=== PATIENT | female | born 1970 | race African-American/Black ===

== ENCOUNTER 2021-03-08 12:31 | Inpatient (IN) | payer BC ==
[~2021-03-08] VITALS: Ht 154.9 cm; Wt 104.3 kg
[~2021-03-08 12:31] MED LIST: BUPR300T52 PO; ENOX40DI SQ; ESCI10TA PO; URSO500T10 PO
--- NOTE | 2021-03-08 12:31 | NUR ---
PT BIBRA 89 FROM URGENT CARE C/O DIZZINESS FOR 4 DAYS. PT IS AAOX4, NOT IN RESPIRATORY DISTRESS, HOOKED TO TEACHER ADVISOR, KEPT RESTED AND COMFORTABLE. WILL CONTINUE TO MONITOR.
--- NOTE | 2021-03-08 12:57 | NUR ---
AT BEDSIDE FOR EVAL.
[2021-03-08] MEDS ORDERED: IV NS 0.9% 1,000 ML BAG IV ONE ×2 (13:00→14:00)
--- NOTE | 2021-03-08 13:04 | NUR ---
[employer] APPLICATION DEVELOPER AT BEDSIDE FOR XRAY.
--- NOTE | 2021-03-08 13:28 | NUR ---
PANEL ON-CALL PAGED
[2021-03-08 13:33] LABS: BASOPHILS % (AUTO) 0.4 % (0.0-2.0); EOSINOPHILS % (AUTO) 0.2 % (0.0-6.0); HEMATOCRIT 50 % (33-45); HEMOGLOBIN 16.7 g/dL (11.5-14.8); LYMPHOCYTES # (AUTO) 2.1 /CMM (0.8-4.8); LYMPHOCYTES % (AUTO) 25.6 % (20.0-44.0); MEAN CORPUSCULAR HGB CONC 34 g/dl (31.0-36.0); MEAN CORPUSCULAR VOLUME 94 fL (82-100); MONOCYTES # (AUTO) 1.4 /CMM (0.1-1.30); MONOCYTES % (AUTO) 16.7 % (2.0-12.0); NEUTROPHILS # (AUTO) 4.8 /CMM (1.8-8.9); NEUTROPHILS % (AUTO) 57.1 % (43.0-81.0); PLATELET COUNT (AUTO) 511 /CMM (150-450); RED BLOOD CELL COUNT(AUTO) 5.29 MIL/uL (4.0-5.2); WHITE BLOOD COUNT (AUTO) 8.4 K/uL (4.3-11.0)
[2021-03-08 13:41] LABS: CALCIUM, SERUM 9.3 mg/dL (8.5-10.1); CARBON DIOXIDE 17 mmol/L (21-32); CHLORIDE 96 mmol/L (98-107); CREATININE 1.6 mg/dL (0.6-1.3); GLUCOSE 99 mg/dL (74-106); SODIUM SERUM 125 mmol/L (136-145); UREA NITROGEN, BLOOD 32 mg/dL (7-18)
[2021-03-08 13:43] LABS: POTASSIUM 6.2 mmol/L (3.5-5.1)
[2021-03-08] MEDS ORDERED: CIPR500T5 PO (13:43)
[2021-03-08] MEDS ORDERED: DULO60CA64 PO (13:43)
--- NOTE | 2021-03-08 13:49 | NUR ---
CALLED [facility], PAGED DR URIOSTEGUI
[2021-03-08 14:00] LABS: ALANINE AMINOTRANSFERASE 133 U/L (12-78); ALBUMIN 3.4 g/dL (3.4-5.0); ASPARTATE AMINOTRANSFERASE 109 U/L (15-37); BILIRUBIN,DIRECT 0.9 mg/dL (0.0-0.2); BILIRUBIN,TOTAL 1.6 mg/dL (0.2-1.0); TOTAL PROTEIN, SERUM 9.8 g/dL (6.4-8.2)
[2021-03-08] MEDS ORDERED: ZOLPIDEM TARTRATE 5 MG TABLET PO PRN (14:00)
[2021-03-08] MEDS ORDERED: DEXTROSE 50%-WATER 50 ML DISP.SYRIN IV ONE (14:00)
[2021-03-08] MEDS ORDERED: IV NS 0.9% 1,000 ML IV PRN (14:00)
[2021-03-08] MEDS ORDERED: HYDROCODONE/APAP 5/325MG TABLET PO PRN (14:00)
[2021-03-08] MEDS ORDERED: ACETAMINOPHEN 325 MG TABLET PO PRN (14:00)
[2021-03-08] MEDS ORDERED: ALBUTEROL FS 2.5 MG/3 ML VIAL.NEB NEB ONE (14:00)
[2021-03-08] MEDS ORDERED: CALCIUM CHLORIDE 1,000 MG/10 ML DISP.SYRIN IV ONE (14:00)
[2021-03-08] MEDS ORDERED: Z GUARD REMEDY 2 OZ OINT TP PRN (14:00)
[2021-03-08] MEDS ORDERED: SODIUM POLYSTYRENE SULFONATE 15 G/60 ML BOTTLE PO ONE (14:00)
[2021-03-08] MEDS ORDERED: INSULIN REGULAR, HUMAN 100 UNIT/ML 10 ML VIAL IV ONE (14:00)
[2021-03-08 14:01] LABS: ALKALINE PHOSPHATASE 1174 U/L (46-116)
[2021-03-08] MEDS ORDERED: INSULIN REGULAR, HUMAN 100 UNIT/ML 10 ML VIAL ONE (14:22)
[2021-03-08] MEDS ORDERED: DEXTROSE 50%-WATER 50 ML DISP.SYRIN ONE (14:22)
[2021-03-08] MEDS ORDERED: CALCIUM CHLORIDE 1,000 MG/10 ML DISP.SYRIN ONE (14:22)
[2021-03-08] MEDS ORDERED: HYDROCODONE/APAP 5/325MG TABLET ONE (14:40)
[2021-03-08] MEDS ORDERED: ALBUTEROL FS 2.5 MG/3 ML VIAL.NEB ONE (14:47)
--- NOTE | 2021-03-08 15:03 | NUR ---
NURSING SUP GAVE [phone].
--- NOTE | 2021-03-08 15:08 | NUR ---
report given to Dimitri KERN for misbah
--- NOTE | 2021-03-08 15:30 | NUR ---
RN MS NOTES RECE[facility]ED [facility] ASSISTED PT TO BED, MADE COMFORTABLE, PT IS AWAKE, ALERT AND ORIENTED, NO COMPLAINT OF PAIN, NOT IN DISTRESS, SAYS HER DIZZINESS IS BETTER, CALL LIGHT WITHIN REACH, ROOM SET UP ORIENTATION PROVIDED TO PT, VERBALIZED UNDERSTANDING, VITALS TAKEN AND RECORDED, PLACED ON TELE MONITORING FOR OBSERVATION, NEEDS ATTENDED.
[2021-03-08 16:00] VITALS: BP 104/74
[2021-03-08] MEDS: ONDANSETRON HCL/PF 4 MG/2 ML VIAL IVP PRN (16:26)
--- NOTE | 2021-03-08 18:19 | NUR ---
RN MS NOTES PT IN BED, AWAKE, ALERT AND ORIENTED, WATCHING TV, NO COMPLAINT OF PAIN OR DIZZINESS, NOT IN DISTRESS, ABLE TO AMBULATE WITH STEADY GAIT TO THE BATHROOM, IV FLUIDS STARTED, SEEN BY DR. URIOSTEGUI, RECEIVED LACTIC ACID RESULT OF 2.4, DR. URIOSTEGUI INFORMED, NO NEW ORDER GIVEN, TOLERATES CURRENT DIET, NEEDS ATTENDED.
--- NOTE | 2021-03-08 19:29 | NUR ---
MS RN NOTES PT RECEIVED IN IN BED ASLEEP BUT EASILY WOKEN UP. ALERT AND ORIENTED X4, NO COMPLAINT OF PAIN OR DIZZINESS, NOT IN DISTRESS, ON ROOM AIR TOLERATING WELL. IV ACCESS ON THE R WRIST NO SWELLING OR REDNESS NOTED IV FLUIDS RUNNING NS @ 75 ML/HR ALL NURSING NEEDS MET AT THIS TIME. CALL LIGHT WITHIN REACH. SAFETY MEASURES MAINTAINED AND FOLLOWED AT ALL TIMES. WILL CONTINUE TO MONITOR.
[2021-03-08 20:25] VITALS: BP 123/70
[2021-03-09] MEDS: ONDANSETRON HCL/PF 4 MG/2 ML VIAL IVP PRN (05:36)
[2021-03-09 06:06] LABS: CALCIUM, SERUM 9.7 mg/dL (8.5-10.1); CREATININE 1.1 mg/dL (0.6-1.3); MAGNESIUM 2.1 mg/dL (1.8-2.4); PHOSPHORUS 4.1 mg/dL (2.5-4.9); POTASSIUM 4.2 mmol/L (3.5-5.1)
--- NOTE | 2021-03-09 06:19 | NUR ---
RN MS NOTES PT IN IN BED ASLEEP BUT EASILY WOKEN UP. ALERT AND ORIENTED X4, NO COMPLAINT OF PAIN OR DIZZINESS, NOT IN DISTRESS, ON ROOM AIR TOLERATING WELL. IV ACCESS ON THE L HAND NO SWELLING OR REDNESS NOTED IV FLUIDS RUNNING NS @ 75 ML/HR ALL NURSING NEEDS MET AT THIS TIME. CALL LIGHT WITHIN REACH. SAFETY MEASURES MAINTAINED AND FOLLOWED AT ALL TIMES. WILL ENDORSE CARE TO DAY SHIFT NURSE.
[2021-03-09 07:06] LABS: BASOPHILS % (AUTO) 0.5 % (0.0-2.0); EOSINOPHILS % (AUTO) 0.7 % (0.0-6.0); HEMATOCRIT 47 % (33-45); LYMPHOCYTES # (AUTO) 3.3 /CMM (0.8-4.8); LYMPHOCYTES % (AUTO) 43.1 % (20.0-44.0); MEAN CORPUSCULAR HGB CONC 34 g/dl (31.0-36.0); MEAN CORPUSCULAR VOLUME 92 fL (82-100); MONOCYTES # (AUTO) 1.5 /CMM (0.1-1.30); MONOCYTES % (AUTO) 20.2 % (2.0-12.0); NEUTROPHILS # (AUTO) 2.7 /CMM (1.8-8.9); NEUTROPHILS % (AUTO) 35.5 % (43.0-81.0); PLATELET COUNT (AUTO) 490 /CMM (150-450); RED BLOOD CELL COUNT(AUTO) 5.09 MIL/uL (4.0-5.2); WHITE BLOOD COUNT (AUTO) 7.6 K/uL (4.3-11.0)
[2021-03-09 07:09] LABS: THYROID STIMULATING HORMONE 0.744 uIU/mL (0.358-3.74)
--- NOTE | 2021-03-09 07:16 | NUR ---
MS RN OPENING NOTE RECEIVED PATIENT IN BED, ALERT AND ORIENTED X 4. PATIENT IS AMBULATORY. PATIENT WITH EVEN AND UNLABORED BREATHING ON ROOM AIR WITH NO SIGNS OF DISTRESS. PATIENT WITH IV PERIPHERAL LINE ON THE LEFT WRIST G#22, PATENT AND INTACT WITH IVF OF NS, RUNNING AT 75ML/HR. PATIENT WITH NO COMPLAINT OF NAUSEA AND VOMITING AT THIS TIME. NO COMPLAINT OF PAIN OR DISCOMFORT AT THIS TIME. SAFETY MEASURES ENSURED AND COMFORT MEASURES PROVIDED. BED AT LOWEST BED POSITION AND LOCKED FOR SAFETY. CALL LIGHT AND TABLE WITHIN REACH AT ALL TIMES. PROVIDED WITH CALM AND QUIET ENVIRONMENT. WILL CONTINUE TO MONITOR PATIENT.
[2021-03-09 08:00] VITALS: BP 107/53
[2021-03-09 08:25] LABS: BAND % (MANUAL) 1 % (0.0-5.0); EOSINOPHILS % (MANUAL) 1 % (0-4); LYMPHOCYTES % (MANUAL) 47 % (16-48); MONOCYTES % (MANUAL) 16 % (0-11.0); NEUTROPHILS % (MANUAL) 35 (42-76)
[2021-03-09] MEDS ORDERED: PANTOPRAZOLE 40 MG VIAL IV SCH (09:00)
--- NOTE | 2021-03-09 09:44 | NUR ---
MS RN NOTE PATIENT COMPLAINED OF HEADACHE (12/15) THAT COMES AND GOES AND ASKED FOR ACETAMINOPHEN. PATIENT CANNOT ELABORATE WHAT KIND OF PAIN SHE IS FEELING. SHE JUST SAYS IT COMES AND GOES. MEDICATION GIVEN PER PATIENT'S REQUEST. PROVIDED WITH CALM AND QUIET ENVIRONMENT. WILL CONTINUE TO MONITOR PATIENT.
--- NOTE | 2021-03-09 10:04 | NUR ---
MS RN NOTE PATIENT REASSESSED FOR PAIN AFER 30 MINUTES OF PAIN MEDICATION. NO COMPLAINTS OF PAIN OR DISCOMFORT. PAIN MEDICATION MANAGEMENT AND PROVIDED WITH CALM AND QUIET ENVIRONMENT. WILL CONTINUE TO MONITOR PATEINT.
--- NOTE | 2021-03-09 12:40 | NUR ---
MS RN NOTE PATIENT WITH ORDER FOR IVF HYDRATION OF NORMAL SALINE BUT PATIENT ENFUSED TO HAVE ANOTHER BAG PUT IN NOW. sHE SAID THAT DR. URIOSTEGUI ALREADY TOLD HER THAT SHE IS FOR DISCHARGE AND THAT SHE CAN DRINK AND MAKE UP FOR IT NOW. HEALTH TEACHING DONE REGARDING IVF HYDRATION. PATIENT VERBALIZED UNDERSTANDING AND APPRECIATION.
--- NOTE | 2021-03-09 15:15 | NUR ---
RN NOTES PER MICHAEL NGUYEN FOR PATIENT TO CONTINUE HOME MEDS UPON DISCHARGE. MED RECON PRINTED AND UPDATED.
--- NOTE | 2021-03-09 15:46 | NUR ---
RN NOTES PATIENT WAS SEEN BY DR. URIOSTEGUI W/ ORDER FOR DISCHARGE TO HOME TODAY. DISCHARGE INSTRUCTIONS AND EDUCATION PROVIDED TO PATIENT, VERBALIZED UNDERSTANDING W/ PCP FOLLOW-UP NEEDED AND CONTINUATION OF HOME MEDICATIONS SCHEDULED. DISCHARGE FORM AND BELONGINGS LIST FORM SIGNED BY PATIENT; ALL BELONGINGS ACCOUNTED FOR. NAME ARMBAND AND IV LINE REMOVED, NO BLEEDING NOTED. PATIENT HAS NO SKIN ISSUES NOTED. PER PATIENT, SHE WILL TAKE UBER TO HOME. PATIENT WAS ACCOMPANIED TO THE LOBBY VIA WHEELCHAIR AND PICKED UP BY UBER STOCK SHEETS CLEANER INSPECTOR (ONIEL COLE). CHARGE NURSE AND MD AWARE OF DISCHARGE.
== END 2021-03-09 15:33 | disposition home or self-care (01) | DRG 683 ==
LOC: ER 12:31 → MEDSG1 15:23 → MED 15:45
DX: N17.9 Acute kidney failure, unspecified (principal); K83.01 Primary sclerosing cholangitis; K51.90 Ulcerative colitis, unspecified, without complications; E87.1 Hypo-osmolality and hyponatremia; E87.5 Hyperkalemia; Z90.49 Acquired absence of other specified parts of digestive tract; R19.7 Diarrhea, unspecified; I10 Essential (primary) hypertension; E78.5 Hyperlipidemia, unspecified; K21.9 Gastro-esophageal reflux disease without esophagitis; K80.20 Calculus of gallbladder without cholecystitis without obstruction; Z20.822 Contact with and (suspected) exposure to COVID-19; E86.1 Hypovolemia
CPT/HCPCS: 36415; 71045-TC; 76705-TC; 80048-TC; 80061-TC; 80076-TC; 83605-TC; 83735-TC; 84100-TC; 84443-TC; 84484-TC; 84703-TC; 85025-TC; 87081-TC; C9113; C9803; G0378; J1815; J2405; J3490; J7030